=== PATIENT | male | born 1990 | race Caucasian/White ===

== ENCOUNTER 2022-01-18 07:51 | Outpatient (CLI) | payer BC, SELFPAY ==
--- NOTE | 2022-02-01 18:31 | WPDHOMESLEEP ---
Sleep Study - Home Unattended Date of Study: 01/18/22 Ordering Provider: César Short MD Interpreting Provider: Gayla Zavaleta, DO Home Sleep Study Type: Apnea Link Air Height: 1.73 m Weight: 102.058 kg Body Mass Index: 34.2 Neck Circumference (inches): 15.5 Congress: 15 Reason for Sleep Study Witnessed apneas, daytime hypersomnia Sleep History The patient is a 31-year-old male with depression and GERD that had a sleep study ordered by his primary care for evaluation of sleep apnea. The patient rarely awakens from sleep short of breath. He frequently awakens at night with heartburn, belching or cough. He constantly snores loud enough that others complain. He rarely has trouble sleeping when he has a cold. He occasionally wakes up gasping for air throughout the night. He occasionally has breathing problems at night observed by himself or others. He constantly sweats excessively at night. He rarely has heart palpitations or irregular heartbeats during the night. He frequently falls asleep during the day but never while driving. He denies cataplexy. He occasionally has trouble at school or work due to sleepiness. He occasionally feels unable to move while waking up or falling asleep. He occasionally experiences vivid dreamlike scenes upon awakening or falling asleep. He denies feeling afraid of going to sleep. He occasionally has nightmares. He occasionally remembers his dreams. He occasionally has thoughts racing through his mind. He rarely feels sad or depressed. He occasionally has anxiety. He occasionally has muscular tension. He occasionally notices parts of his body jerk. He occasionally kicks during the night. He denies having crawling and aching feelings in his legs as well as leg pain during the night. He rarely grinds his teeth during sleep but occasionally awakens with morning jaw pain. He is rarely bothered by pain during the day but never awakened by pain during the night. He frequently wakes up feeling stiff in the morning. He frequently wakes up with sore achy muscles. He rarely wakes up with pain in the neck, spine and other joints. He goes to bed at 9:00 p.m. on weekdays and at 10:00 p.m. on the weekends. He is able to fall asleep immediately. He typically does not wake up throughout the night. If he needs to wake up, it is so he can get Tums. He is able to fall back asleep immediately. He wakes up at 3:45 a.m. on weekdays and between 6-7 a.m. on the weekends. He does not stay in bed after waking up in the morning. He currently lives with his and daughter. He does not consume any caffeinated beverages within 2 hours of bedtime. He does not engage in physical exercise before bedtime. He will watch television before falling asleep. He will take naps in the afternoon or the evening but they are not refreshing. He drinks 2-3 caffeinated beverages per day. He denies tobacco, alcohol and recreational drug use. [facility] Past Medical History Medical History Adult BMI 33.0-33.9 kg/sq m BMI 31.0-31.9,adult Family History Family History Father Hypertension Mother Heart disease COVID-19 Sibling No problems noted. 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
[2022-02-01 18:41] VITALS: BMI 34.2
== END 2022-01-19 16:03 | disposition home or self-care (01) ==
PROVIDERS: PCP Family Medicine; Visit Provider Family Medicine
DX: G47.33 Obstructive sleep apnea (adult) (pediatric) (principal); G47.10 Hypersomnia, unspecified; F51.8 Other sleep disorders not due to a substance or known physiological condition
CPT/HCPCS: 95806

== ENCOUNTER 2022-06-06 10:19 | Outpatient (CLI) | payer BC, SELFPAY ==
--- NOTE | ~2022-06-06 | CT_ITS ---
EXAMINATION: CT abdomen pelvis wo con DATE: 06/06/2022 10:39 INDICATION: Hematuria, right flank pain TECHNIQUE: Computed tomography (CT) of the abdomen and pelvis was performed without intravenous contr ast. The dose-length product (DLP) was 938.06 mGy-cm. Automated exposure control and iterative recons truction technique were employed. COMPARISON: None FINDINGS: The lung bases are clear. The heart size is normal. There is a small sliding hiatal hernia. The liver, spleen, pancreas, gallbladder, and adrenal glands are normal. The kidneys are unremarkabl e. No stones are identified in the kidneys, ureters, or bladder. No hydronephrosis or hydroureter. Th e appendix is normal. There is a tiny umbilical hernia containing fat. There is mild lumbar spondylos is. IMPRESSION: 1. No CT correlate for the patient's symptoms. Reviewed, dictated and finalized at location B. NCIAL AID OFFICER
== END 2022-06-06 10:20 | disposition home or self-care (01) ==
PROVIDERS: PCP Family Medicine; Visit Provider Physician Assistant Medical
DX: R10.9 Unspecified abdominal pain (principal); R31.9 Hematuria, unspecified
CPT/HCPCS: 74176

== ENCOUNTER 2022-06-09 11:27 | Outpatient (CLI) | payer BC, SELFPAY ==
--- NOTE | ~2022-06-09 | US_ITS ---
EXAMINATION: US scrotum doppler DATE: 06/09/2022 12:23 INDICATION: Right testicular pain TECHNIQUE: Testicular sonogram utilizing grayscale and Doppler COMPARISON: None. FINDINGS: The right testis measures 4.7 x 2.2 x 3.6 cm. The left testis measures 4.8 x 2.4 x 3.3 cm. There is normal vascular flow to both testes. The right epididymis appears to demonstrate increased v ascular flow compared to the left. The left epididymis contains a 5 mm cyst or spermatocele. There is no varicocele or hydrocele. IMPRESSION: 1. Possible right epididymitis. Reviewed, dictated and finalized at location A. HT OPERATIONS COORDINATOR
== END 2022-06-09 11:28 | disposition home or self-care (01) ==
PROVIDERS: PCP Family Medicine; Visit Provider Physician Assistant Medical
DX: N50.811 Right testicular pain (principal)
CPT/HCPCS: 76870; 93976